=== PATIENT | male | born 1960 | race Caucasian/White ===

== ENCOUNTER 2023-12-22 17:16 | Emergency (ER) | payer BC ==
[~2023-12-22] VITALS: Ht 177.8 cm; Wt 90.7 kg
[2023-12-22] MEDS ORDERED: Acetaminophen/Oxycodone 5 MG/325 MG TABLET PO ONE (17:30)
[2023-12-22] MEDS ORDERED: MELOXICAM15 MG PO (17:47)
== END 2023-12-22 17:55 | disposition home or self-care (01) ==
LOC: ED 17:16
DX: S43.401A Unspecified sprain of right shoulder joint, initial encounter (principal); I10 Essential (primary) hypertension; W01.0XXA Fall on same level from slipping, tripping and stumbling without subsequent striking against object, initial encounter; Y93.89 Activity, other specified; Y92.89 Other specified places as the place of occurrence of the external cause; Y99.8 Other external cause status